=== PATIENT | male | born 1945 | race Caucasian/White ===

== ENCOUNTER 2017-08-03 07:35 | Emergency (ER) | payer MEDICARE, OTHER ==
--- NOTE | 2017-08-03 08:30 | RADIOLOGY REPORT (SQ) ---
EXAM DESCRIPTION: CHEST PA/LAT COMPLETED DATE/TIME: 08/03/2017 8:20 am REASON FOR STUDY: sob COMPARISON: None. EXAM PARAMETERS: NUMBER OF VIEWS: two views TECHNIQUE: Digital Frontal and Lateral radiographic views of the chest acquired. RADIATION DOSE: NA LIMITATIONS: none FINDINGS: LUNGS AND PLEURA: No opacities, masses or pneumothorax. No pleural effusion. MEDIASTINUM AND HILAR STRUCTURES: No masses or contour abnormalities. HEART AND VASCULAR STRUCTURES: Heart normal size. No evidence for failure. BONES: No acute findings. HARDWARE: None in the chest. OTHER: No other significant finding. IMPRESSION: NO SIGNIFICANT RADIOGRAPHIC FINDING IN THE CHEST. TECHNICAL DOCUMENTATION: JOB ID: [id number] [employer]- All Rights Reserved
[2017-08-03] MEDS ORDERED: PREDNISONE 20 MG TABLET PO ONE (08:47)
[2017-08-03] MEDS ORDERED: ALBUTEROL SULFATE HFA (90 MCG/PUFF) 8 GM MDI (1 MDI/ER DISP) IH ONE (08:47)
[2017-08-03] MEDS ORDERED: DOXYCYCLINE HYCLATE 100 MG TABLET PO ONE (08:47)
--- NOTE | 2017-08-03 08:49 | ER Document Report ---
ED General - General Chief Complaint: Cough Stated Complaint: COUGH Time Seen by Provider: 08/03/17 07:58 TRAVEL OUTSIDE OF THE [place] IN LAST 30 DAYS: No - HPI Patient complains to provider of: Cough Notes: Patient coming in for cough productive sputum shortness of breath ongoing for the last 5 days. Patient states she smokes approximately half pack a day patient has a significant smoking history. Denies any fevers or chills states normally does not have a productive cough color change recently. Patient denies any recent travel denies any exposure to influenza. Denies chest pain abdominal pain fevers chills nausea vomiting diarrhea - Related Data Allergies/Adverse Reactions: phenytoin [From Dilantin] Allergy (Verified 08/03/17 07:40) Sulfa (Sulfonamide Antibiotics) Allergy (Verified 08/03/17 07:40) Past Medical History - Social History Smoking Status: Never Smoker Chew tobacco use (# tins/day): No Frequency of alcohol use: None Drug Abuse: None Family History: Reviewed & Not Pertinent Patient has suicidal ideation: No Patient has homicidal ideation: No Renal/ Medical History: Denies: Hx Peritoneal Dialysis Review of Systems - Review of Systems Constitutional: No symptoms reported EENT: No symptoms reported Cardiovascular: No symptoms reported Respiratory: Short of breath, Sputum, Wheezing Gastrointestinal: No symptoms reported Genitourinary: No symptoms reported Male Genitourinary: No symptoms reported Musculoskeletal: No symptoms reported Skin: No symptoms reported Hematologic/Lymphatic: No symptoms reported Neurological/Psychological: No symptoms reported -: Yes All other systems reviewed and negative Physical Exam - Vital signs Vitals: Temp Pulse Resp BP Pulse Ox 98.4 F 69 18 165/74 H 99 08/03/17 07:42 08/03/17 07:42 08/03/17 07:42 08/03/17 07:42 08/03/17 07:42 Interpretation: Normal - General General appearance: Appears well, Alert - HEENT Head: Normocephalic, Atraumatic Eyes: Normal Pupils: PERRL - Respiratory Respiratory status: No respiratory distress Chest status: Nontender Breath sounds: Wheezing - faint bilateral Chest palpation: Normal - Cardiovascular Rhythm: Regular Heart sounds: Normal auscultation Murmur: No - Abdominal Inspection: Normal Distension: No distension Bowel sounds: Normal Tenderness: Nontender Organomegaly: No organomegaly - Back Back: Normal, Nontender - Extremities General upper extremity: Normal inspection, Nontender, Normal color, Normal ROM , Normal temperature General lower extremity: Normal inspection, Nontender, Normal color, Normal ROM , Normal temperature, Normal weight bearing. No: Twila's sign - Neurological Neuro grossly intact: Yes Cognition: Normal Orientation: AAOx4 [place] Coma Scale Eye Opening: Spontaneous [place] Coma Scale Verbal: Oriented [place] Coma Scale Motor: Obeys Commands [place] Coma Scale Total: 15 Speech: Normal Motor strength normal: LUE, RUE, LLE, RLE Sensory: Normal - Psychological Associated symptoms: Normal affect, Normal mood - Skin Skin Temperature: Warm Skin Moisture: Dry Skin Color: Normal Course - Re-evaluation Re-evalutation: 08/03/17 13:52 Patient more likely underlying bronchitis due to sputum change will start on doxycycline we will give albuterol and steroids patient encouraged follow-up PCP. - Vital Signs Vital signs: Temp Pulse Resp BP Pulse Ox 98.9 F 75 16 125/87 H 99 08/03/17 09:27 08/03/17 09:27 08/03/17 09:27 08/03/17 09:27 08/03/17 09:27 Discharge - Discharge Clinical Impression: Bronchitis, Tobacco use Condition: Good Disposition: HOME, SELF-CARE Instructions: Bronchitis With Bronchospasm (Wheezing) ([facility]), Doxycycline ([facility]) , Stop Smoking ([facility]) Additional Instructions: Please use the inhaler that we gave you here in ER 2 puffs every 4 hours for the next 5 days. Take steroids as prescribed. Take antibiotics as prescribed follow-up with your physician in 7 days. Stop smoking. Prescriptions: Doxycycline Hyclate 100 mg PO BID #14 capsule Fluconazole [Diflucan] 150 mg PO ONCE PRN #1 tablet PRN Reason: Prednisone [Deltasone 20 mg Tablet] 40 mg PO DAILY 5 Days tablet Referrals: MIQUEL SAMSON MD [Primary Care Provider] - Follow up in 1 week
[2017-08-03] MEDS ORDERED: FLUCONAZOLE 100 MG TABLET PO ONE (08:59)
[2017-08-03 09:30] VITALS: BP 125/87
== END 2017-08-03 09:29 | disposition home or self-care (01) ==
LOC: ER 07:35
DX: J40 Bronchitis, not specified as acute or chronic (principal); R05 Cough; R06.02 Shortness of breath; F17.210 Nicotine dependence, cigarettes, uncomplicated
CPT/HCPCS: 99284; 87804; 71020; A9270 ×3; J3490; J7512

== ENCOUNTER 2019-06-12 16:29 | Emergency (ER) | payer MEDICARE, OTHER ==
--- NOTE | 2019-06-12 16:49 | ER Document Report ---
ED Medical Screen (RME) - General Chief Complaint: Shoulder Pain Stated Complaint: RIGHT SHOULDER PIAN Time Seen by Provider: 06/12/19 16:47 Primary Care Provider: MIQUEL SAMSON MD [Primary Care Provider] - Follow up as needed NATALIA YBARRA MD [ACTIVE STAFF] - Follow up as needed Notes: Patient presents with right shoulder pain. She has chronic shoulder pain. 2 weeks ago she mowed the lawn and aggrevated her pain. Saw Dr. Ybarra a week ago. She is supposed to have a nerve study. 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 Helps care for grandkids. Exam: tenderness to posterior shoulder. I have greeted and performed a rapid initial assessment of this patient. A comprehensive ED assessment and evaluation of the patient, analysis of test results and completion of medical decision making process will be conducted by an additional ED providers. TRAVEL OUTSIDE OF THE [place] IN LAST 30 DAYS: No - Related Data Allergies/Adverse Reactions: phenytoin [From Dilantin] Allergy (Verified 08/03/17 07:40) Sulfa (Sulfonamide Antibiotics) Allergy (Verified 08/03/17 07:40) Physical Exam - Vital signs Vitals: Temp Pulse Resp BP Pulse Ox 98.1 F 68 24 H 145/70 H 97 06/12/19 16:36 06/12/19 16:36 06/12/19 16:36 06/12/19 16:36 06/12/19 16:36 Course - Vital Signs Vital signs: Temp Pulse Resp BP Pulse Ox 98.0 F 60 18 154/81 H 99 06/12/19 18:21 06/12/19 18:21 06/12/19 18:21 06/12/19 18:21 06/12/19 18:21 Doctor's Discharge - Discharge Clinical Impression: Right shoulder pain Condition: Stable Disposition: HOME, SELF-CARE Additional Instructions: rest, sling, take meds as prescribed, return if worse Prescriptions: Tramadol HCl [Ultram] 50 mg PO BID #20 tablet Referrals: MIQUEL SAMSON MD [Primary Care Provider] - Follow up as needed NATALIA YBARRA MD [ACTIVE STAFF] - Follow up as needed
[2019-06-12] MEDS ORDERED: DEXAMETHASONE SOD PHOS INJ 10 MG/1 ML VIAL IM ONE (16:52)
[2019-06-12] MEDS ORDERED: KETOROLAC TROMETHAMINE 60 MG/2 ML SDV IM ONE (16:52)
--- NOTE | 2019-06-12 17:03 | ER Document Report ---
ED Extremity Problem, Upper - General Chief Complaint: Shoulder Pain Stated Complaint: RIGHT SHOULDER PIAN Time Seen by Provider: 06/12/19 16:47 Primary Care Provider: MIQUEL SAMSON MD [Primary Care Provider] - Follow up as needed Mode of Arrival: Ambulatory Information source: Patient TRAVEL OUTSIDE OF THE [place] IN LAST 30 DAYS: No - HPI Patient complains to provider of: Pain, Right, Shoulder - Pt with h/o R shoulder pain -- has had prior steroid injections by Dr. Ybarra. She aggravated the same shoulder several days ago by mowing her lawn and weeding her garden. She saw Dr. Ybarra earlier in the week who ordered a nerve conduction study which she has recently completed. - Related Data Allergies/Adverse Reactions: phenytoin [From Dilantin] Allergy (Verified 08/03/17 07:40) Sulfa (Sulfonamide Antibiotics) Allergy (Verified 08/03/17 07:40) Past Medical History - General Information source: Patient - Social History Smoking Status: Current Every Day Smoker Frequency of alcohol use: Social Drug Abuse: None Family History: Reviewed & Not Pertinent Patient has suicidal ideation: No Patient has homicidal ideation: No Review of Systems - Review of Systems Constitutional: No symptoms reported EENT: No symptoms reported Cardiovascular: No symptoms reported Respiratory: No symptoms reported Gastrointestinal: No symptoms reported Musculoskeletal: See HPI, Joint pain - R shoulder Neurological/Psychological: No symptoms reported -: Yes All other systems reviewed and negative Physical Exam - Vital signs Vitals: Temp Pulse Resp BP Pulse Ox 98.1 F 68 24 H 145/70 H 97 06/12/19 16:36 06/12/19 16:36 06/12/19 16:36 06/12/19 16:36 06/12/19 16:36 - General General appearance: Appears well In distress: Mild - Respiratory Respiratory status: No respiratory distress Breath sounds: Normal - Cardiovascular Rhythm: Regular Heart sounds: Normal auscultation Murmur: No - Extremities General upper extremity: Tender - there is TTP of the posterior aspect of the R shoulder with FROM; N/V intact Course - Re-evaluation Re-evalutation: 06/12/19 17:43 Pt. felt better after IM steroids and toradol -- will set her up with a sling and have her F/U with Dr. Ybarra in 3 days for intra-articular joint injection - Vital Signs Vital signs: Temp Pulse Resp BP Pulse Ox 98.1 F 68 24 H 145/70 H 97 06/12/19 16:36 06/12/19 16:36 06/12/19 16:36 06/12/19 16:36 06/12/19 16:36 - Diagnostic Test Radiology reviewed: Image reviewed - neg fx, dislocation Procedures - Immobilization Right Shoulder Time completed: 17:46 Pre-Proc Neuro Vasc Exam: Normal Immobilizer type: Sling Performed by: PCT Post-Proc Neuro Vasc Exam: Normal Alignment checked and good: Yes Discharge - Discharge Clinical Impression: Right shoulder pain Qualifiers: Chronicity: acute Qualified Code(s): M25.511 - Pain in right shoulder Condition: Stable Disposition: HOME, SELF-CARE Additional Instructions: rest, sling, take meds as prescribed, return if worse Prescriptions: Tramadol HCl [Ultram] 50 mg PO BID #20 tablet Referrals: MIQUEL SAMSON MD [Primary Care Provider] - Follow up as needed NATALIA YBARRA MD [ACTIVE STAFF] - Follow up as needed
--- NOTE | 2019-06-12 17:35 | RADIOLOGY REPORT (SQ) ---
EXAM DESCRIPTION: SHOULDER RIGHT 2 OR MORE VIEWS COMPLETED DATE/TIME: 06/12/2019 5:14 pm REASON FOR STUDY: right shoulder pain COMPARISON: None. NUMBER OF VIEWS: Three views. TECHNIQUE: Internal rotation, external rotation, and Y view images acquired of the right shoulder. LIMITATIONS: None. FINDINGS: MINERALIZATION: Normal. BONES: No acute fracture. No worrisome bone lesions. JOINTS: No dislocation. VISUALIZED LUNGS AND RIBS: No pneumothorax. No rib fracture. SOFT TISSUES: No radiopaque foreign body. OTHER: No other significant finding. IMPRESSION: NO RADIOGRAPHIC EVIDENCE OF ACUTE INJURY. TECHNICAL DOCUMENTATION: JOB ID: [id number] [employer]- All Rights Reserved Reading location - IP/workstation name: [email or web address]
[2019-06-12 18:24] VITALS: BP 154/81
== END 2019-06-12 18:23 | disposition home or self-care (01) ==
LOC: EDSEX → ER 16:29
DX: M25.511 Pain in right shoulder (principal); Z88.2 Allergy status to sulfonamides; F17.200 Nicotine dependence, unspecified, uncomplicated
CPT/HCPCS: 73030; J1885; J1100; 96372; 99283